=== PATIENT | female | born 1985 | race Caucasian/White ===

== ENCOUNTER 2016-08-09 21:19 | Emergency (ER) | payer MEDICARE, MEDICAID ==
--- NOTE | 2016-08-13 19:49 | ER ---
ADMIT: 08/09/2016 RM/LOC: ER [facility] MR#: [id number] [id number] [place], [place] [address] JOSE DE JESUS CLEMENTE [address] [place] [address] Emergency Room Report SEX: F AGE: 30 : 1985 DATE: 08/09/2016 CHIEF COMPLAINT: Weakness and blood in stool. HISTORY OF PRESENT ILLNESS: This is a pleasant 30-year-old, white female, who presents to the ER for evaluation of some blood in her stool. The patient states she has had several episodes of blood covered stool and blood in the toilet bowl over the last month; however, today, she had a bowel movement with more blood than she has seen in the past, which worried her. She also admits to some generalized weakness and dizziness for which she has seen Dr. Wakefield sometime around July 15 for. She has been worked up for her increased weakness with little result at this point. She states she is very sleepy, feels exhausted all the time. She described some chest pain and shortness of breath to me today. She has had lab drawn in the past without significant findings. PAST MEDICAL HISTORY: Significant for hypertension, anemia, edema, pseudoseizures, PTSD, and PCOS. ALLERGIES: IMITREX AND FLEXERIL. COURSE IN THE EMERGENCY ROOM: Vital signs are stable; 124/54, heart rate 77, respirations 12, temp 98.4. She is in no acute distress. Physical exam is overall benign. Digital rectal exam is complete. She does have some tenderness with exam. No obvious external hemorrhoids or fissure noted. Stool was tested and returned positive for occult blood. No tenderness on abdominal exam. No evidence of any CVA tenderness. She does have some chest discomfort with palpation in the midline of her chest. We did proceed with some laboratory studies today. CBC shows white count 14.1, hemoglobin 12.7, hematocrit 39.8, and platelets 383. BMP; sodium 143, potassium 3.9, chloride 106, CO2 of 26, glucose 81, creatinine 1.0. Free T4 was 1.02. TSH was 2.98. Did get a urine on her, which showed overall hazy clarity with trace blood, 3+ leukocyte esterase, 6 white blood cells per high-power field and 4 red blood cells per high-powered field. IMPRESSION: 1. Acute cystitis. 2. Chronic fatigue. DISPOSITION: We did give the patient a dose of Bactrim DS 1 tab by mouth in ADMIT: 08/09/2016 RM/LOC: ER [facility] MR#: [id number] [address] [address] JOSE DE JESUS CLEMENTE [address] [address] Emergency Room Report SEX: F AGE: 30 : 1985 the ER to start her treatment for cystitis. We also provided her with a script for Bactrim DS 1 tab p.o. b.i.d. for 5 days. She was instructed to continue to increase her fluids as tolerated to use Tylenol or ibuprofen for pain. She is to follow up with Dr. Wakefield for the rectal bleeding for possible evaluation by a surgeon. She should also follow up with Dr. Wakefield with her concerns for her chronic fatigue, and she was educated on the use of ED for emergent situations as most of her complaints seemed to be chronic in nature, but I did sympathize with her struggle as she continues to find answers for her chronic fatigue. The patient's questions were sought and answered to the best of our ability to the patient's satisfaction. She was discharged from the department in stable condition with followup with Dr. Wakefield. DRE Mcgraw / Abraham Pham MD / melany JOB #: [id number] CC: Abraham Pham MD, Attending Physician Pat Coffey, Family Physician
== END 2016-08-10 00:54 | disposition home or self-care (01) ==
LOC: ER 21:19
DX: N30.00 Acute cystitis without hematuria (principal); R53.83 Other fatigue; I10 Essential (primary) hypertension; Z88.8 Allergy status to other drugs, medicaments and biological substances

== ENCOUNTER 2016-10-21 18:27 | Emergency (ER) | payer MEDICARE, MEDICAID ==
--- NOTE | 2016-11-07 16:41 | ER ---
ADMIT: 10/21/2016 RM/LOC: ER [facility] MR#: [id number] [address] [address] JOSE DE JESUS CLEMENTE [address] [place] [address] Emergency Room Report SEX: F AGE: 31 : 1985 DATE: 10/21/2016 SUBJECTIVE: A 31-year-old, morbidly obese female, who comes to the Emergency Department with complaints of pelvic pain. She said she has had the same things multiple times in the past. I have been told there has been a cystic ovary. She is also complaining of a small amount of blood in her stool, which she has seen in the Emergency Department for that in August as well. See T- sheet for history and physical. Morbid obesity precludes accurate physical exam. Ultrasound reveals a 2.5 cm cystic lesion in the pelvis, likely corresponding to an ovary. Body habitus makes it difficult to see accurately. The patient is given a prescription for Ultram and instructed to follow up with her doctor this week. She was also instructed to have a colonoscopy as directed before with her last ER visit. Wm Moore MD/ melany JOB #: [id number] CC: Giovanny Martinez MD, Attending Physician Pat Coffey MD Resident, Family Physician
== END 2016-10-21 22:05 | disposition home or self-care (01) ==
LOC: ER 18:27
DX: R10.2 Pelvic and perineal pain (principal); I10 Essential (primary) hypertension; G40.909 Epilepsy, unspecified, not intractable, without status epilepticus; E66.01 Morbid (severe) obesity due to excess calories; Z90.89 Acquired absence of other organs; Z88.8 Allergy status to other drugs, medicaments and biological substances; Z79.84 Long term (current) use of oral hypoglycemic drugs; Z79.899 Other long term (current) drug therapy